=== PATIENT | female | born 1950 | race Two or more races ===

== ENCOUNTER 2017-05-17 12:50 | Outpatient (CLI) | payer MEDICARE, BC | END 2017-05-17 23:59 | disposition home or self-care (01) | LOC: WOU 12:50 | PROVIDERS: ATTEND Podiatrist Foot & Ankle Surgery | DX: L60.0 Ingrowing nail (principal); L60.3 Nail dystrophy; M79.671 Pain in right foot | CPT/HCPCS: 11730; A6402; J3490 ==

== ENCOUNTER → 2017-05-24 | Outpatient (CLI) | payer MEDICARE, BC | LOC: WOU 09:45 | PROVIDERS: ATTEND Podiatrist Foot & Ankle Surgery | DX: Z09 Encounter for follow-up examination after completed treatment for conditions other than malignant neoplasm (principal); L60.3 Nail dystrophy; M79.671 Pain in right foot | CPT/HCPCS: A6402; G0463 ==

== ENCOUNTER 2018-01-14 08:17 | Outpatient (CLI) | payer MEDICARE, BC | END 2018-01-14 23:59 | disposition home or self-care (01) | LOC: WOU 08:17 | PROVIDERS: ATTEND Podiatrist Foot & Ankle Surgery | DX: L60.0 Ingrowing nail (principal); M79.672 Pain in left foot | CPT/HCPCS: 11730; A6402; J3490; Z7610 ==

== ENCOUNTER 2018-01-21 08:00 | Outpatient (CLI) | payer MEDICARE, BC | END 2018-01-21 23:59 | disposition home or self-care (01) | LOC: WOU 08:00 | PROVIDERS: ATTEND Podiatrist Foot & Ankle Surgery | DX: Z09 Encounter for follow-up examination after completed treatment for conditions other than malignant neoplasm (principal); L60.3 Nail dystrophy | CPT/HCPCS: G0463; Z7610 ==

== ENCOUNTER 2018-09-19 09:30 | Outpatient (CLI) | payer MEDICARE, BC | END 2018-09-19 23:59 | disposition home or self-care (01) | LOC: WOU 09:30 | PROVIDERS: ATTEND Podiatrist Foot & Ankle Surgery | DX: L60.0 Ingrowing nail (principal); L60.3 Nail dystrophy; M79.672 Pain in left foot | CPT/HCPCS: 11730; A6402; J3490 ==

== ENCOUNTER 2019-01-30 08:05 | Outpatient (CLI) | payer MEDICARE, BC | END 2019-01-30 23:59 | disposition home or self-care (01) | LOC: WOU 08:05 | PROVIDERS: ATTEND Podiatrist Foot & Ankle Surgery | DX: M79.675 Pain in left toe(s) (principal); L60.3 Nail dystrophy; L60.0 Ingrowing nail | CPT/HCPCS: G0463 ==